=== PATIENT | female | born 1935 | race African-American/Black ===

== ENCOUNTER 2021-12-04 07:02 | Day surgery (SDC) | payer OTHER ==
[2021-11-27 11:12] VITALS: BMI 28.0
[2021-12-04] MEDS ORDERED: ROPIVACAINE HCL/PF 100 MG/20 ML VIAL ONE (08:50)
[2021-12-04] MEDS ORDERED: MIDAZOLAM HCL 2 MG/2 ML SINGLE DOSE VIAL ONE (08:50)
[2021-12-04] MEDS ORDERED: ONDANSETRON 4 MG/2 ML VIAL ONE (09:42)
[2021-12-04] MEDS ORDERED: KETOROLAC TROMETHAMINE 30 MG/1 ML VIAL ONE (09:42)
[2021-12-04] MEDS ORDERED: ceFAZolin SODIUM 1 GM VIAL ONE (09:42)
[2021-12-04] MEDS ORDERED: DEXAMETHASONE SOD PHOSPHATE 4 MG/1 ML VIAL ONE (09:42)
[2021-12-04] MEDS ORDERED: LIDOCAINE HCL/PF 2% SDV 5ML VIAL ONE (09:42)
[2021-12-04] MEDS ORDERED: PROPOFOL 20 ML ONE (09:43)
[2021-12-04] MEDS ORDERED: BUPIVACAINE HCL/EPINEPHRINE/PF 30 ML VIAL IJ ONE (11:22)
[2021-12-04] MEDS ORDERED: ONDANSETRON 4 MG/2 ML VIAL IVPUSH PRN (11:53)
[2021-12-04] MEDS ORDERED: oxyCODONE HCL 5 MG TABLET PO PRN ×2 (11:53)
[2021-12-04 13:03] VITALS: TEMP 98
[2021-12-04 13:23] VITALS: BP 121/61; PULSE 84
== END 2021-12-04 14:05 | disposition home or self-care (01) ==
LOC: FASU 07:02
PROVIDERS: ATTEND Orthopaedic Surgery
PROC: 0RBJ4ZZ Excision of Right Shoulder Joint, Percutaneous Endoscopic Approach (ICD-10-PCS; 2021-12-04)
PROC: 0LB10ZZ Excision of Right Shoulder Tendon, Open Approach (ICD-10-PCS; 2021-12-04)
PROC: 0PB94ZZ Excision of Right Clavicle, Percutaneous Endoscopic Approach (ICD-10-PCS; principal; 2021-12-04 10:38)
DX: M75.01 Adhesive capsulitis of right shoulder (principal); M75.41 Impingement syndrome of right shoulder; M19.011 Primary osteoarthritis, right shoulder; S43.431A Superior glenoid labrum lesion of right shoulder, initial encounter; X58.XXXA Exposure to other specified factors, initial encounter; Y93.9 Activity, unspecified; Y92.9 Unspecified place or not applicable; M67.411 Ganglion, right shoulder
CPT/HCPCS: 88304-TC; 94760

== ENCOUNTER 2023-09-15 06:06 | Day surgery (SDC) | payer OTHER ==
[2023-09-09 10:59] VITALS: BMI 26.2
[2023-09-15] MEDS ORDERED: PROPOFOL 40 ML ONE (07:11)
[2023-09-15] MEDS ORDERED: LIDOCAINE HCL/PF 2% SDV 5ML VIAL ONE (07:11)
[2023-09-15] MEDS ORDERED: BUPIVACAINE HCL/PF 0.25% (2.5MG/ML) 10 ML VIAL ONE (07:12)
[2023-09-15] MEDS ORDERED: LIDOCAINE HCL 1%, 10 MG/ML (20ML VIAL) ONE (07:12)
[2023-09-15] MEDS ORDERED: MIDAZOLAM HCL 2 MG/2 ML SINGLE DOSE VIAL ONE (07:12)
[2023-09-15] MEDS ORDERED: DEXAMETHASONE SOD PHOSPHATE 4 MG/1 ML VIAL ONE (07:49)
[2023-09-15] MEDS ORDERED: ceFAZolin SODIUM 1 GM VIAL ONE (07:49)
[2023-09-15] MEDS ORDERED: KETOROLAC TROMETHAMINE 30 MG/1 ML VIAL ONE (07:49)
[2023-09-15] MEDS ORDERED: ONDANSETRON 4 MG/2 ML VIAL ONE (07:49)
[2023-09-15 09:11] VITALS: BP 110/65; PULSE 74; RESP 18; TEMP 97.6
== END 2023-09-15 09:22 | disposition home or self-care (01) ==
LOC: FASU 06:06
PROVIDERS: ATTEND Orthopaedic Surgery
PROC: 01N50ZZ Release Median Nerve, Open Approach (ICD-10-PCS; principal; 2023-09-15 08:08)
DX: G56.02 Carpal tunnel syndrome, left upper limb (principal)